=== PATIENT | female | born 1940 | race Caucasian/White ===

== ENCOUNTER → 2022-12-09 | Outpatient (CLI) | payer OTHER ==
--- NOTE | 2022-12-09 12:46 | US ---
EXAMINATION TYPE: US venous doppler duplex LE LT DATE OF EXAM: 12/09/2022 12:25 PM COMPARISON: NONE CLINICAL INDICATION: Female, 82 years old with history of M79.605 PAIN IN LEFT LEG; Left lower leg sw elling SIDE PERFORMED: Left TECHNIQUE: The lower extremity deep venous system is examined utilizing real time linear array sonog cody with graded compression, doppler sonography and color-flow sonography. VESSELS IMAGED: Common Femoral Vein Deep Femoral Vein Greater Saphenous Vein * Femoral Vein Popliteal Vein Small Saphenous Vein * Proximal Calf Veins (* superficial vessels) Left Leg: Appears negative for DVT IMPRESSION: No evidence of deep venous thrombosis.
== END | disposition home or self-care (01) ==
LOC: RADUSWWP 12:03
PROVIDERS: ATTEND Family Medicine
DX: M79.605 Pain in left leg (principal)

== ENCOUNTER → 2023-02-07 | Outpatient (CLI) | payer MEDICARE ==
[2023-02-07 16:33] LABS: African American GFR (CKD) 84 (>60 ml/min/1.73 sqM); Blood Urea Nitrogen 17 mg/dL (7-17); Non-African American GFR(CKD) 73 (>60 ml/min/1.73 sqM)
--- NOTE | 2023-02-07 21:26 | CT ---
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 CT DLP: 380.40 mGycm, Automated exposure control for dose reduction was used. CONTRAST: Performed injected with 100 mL of Isovue 370. TECHNIQUE: Axial images were obtained at 5 mm thick sections. Reconstructed images are reviewed on [employer] computer in the coronal plane. FINDINGS: Portion of the thyroid visualized is normal. No suspicious lung nodules or focal infiltrates are present. No suspicious diaphragmatic calcification or pleural calcifications identified. There is a 1.1 cm left peribronchial node. Borderline 1 cm lymph nodes in the subcarinal region. The re are additional small lymph nodes in the pretracheal and periaortic regions. The ascending aorta di ameter at the level of the main pulmonary artery is 3.3 cm. The main pulmonary artery diameter at th e bifurcation is 2.[address] sections are obtained through the upper abdomen. Abdomen is essentially unremarkable. IMPRESSION: 1. Borderline adenopathy. Follow-up exam in 6 months is recommended. 2. Typical findings of asbestosis not identified on the current exam
== END | disposition home or self-care (01) ==
LOC: RADCTMAIN 15:47
PROVIDERS: ATTEND Family Medicine
DX: R06.02 Shortness of breath (principal); Z77.090 Contact with and (suspected) exposure to asbestos
CPT/HCPCS: 82565; 84520; 71260; 36415; Q9967

== ENCOUNTER → 2023-08-10 | Outpatient (CLI) | payer MEDICARE ==
--- NOTE | 2023-08-11 09:09 | CT ---
EXAMINATION TYPE: CT chest wo con DATE OF EXAM: 08/10/2023 COMPARISON: Prior chest CT February 07, 2023 HISTORY: SOLITARY PULMONARY NODULE CT DLP: 3554.1 mGycm. Automated Exposure Control for Dose Reduction was Utilized. TECHNIQUE: CT scan of the thorax is performed without IV contrast. FINDINGS: LUNGS: Mild bilateral lower lung linear scarring and/or atelectasis. No consolidation. No greater desirae n 5 mm pulmonary nodules. No pleural effusion or pneumothorax. MEDIASTINUM: Lack of IV contrast is noted to limit evaluation for mediastinal and especially hilar ad enopathy. Stable 9 x 7 mm prevascular lymph node axial image 25. Stable 13 x 6 mm subcarinal lymph no de. No new or enlarging greater than 1 cm in short axis mediastinal adenopathy. Calcification at the level of the mitral valve. No cardiomegaly or pericardial effusion is seen. Mild to moderate calcifie d plaque of the thoracic aorta. OTHER: Cholecystectomy clips are seen. Multilevel spurring in the spine. IMPRESSION: Chronic changes without new or enlarging new or enlarging greater than 5 mm pulmonary nod ules. No suspicious thoracic adenopathy. No acute findings are evident. No significant change from pr ior CT.
== END | disposition home or self-care (01) ==
LOC: RADCTMAIN 11:29
PROVIDERS: ATTEND Family Medicine
DX: J98.4 Other disorders of lung (principal); R91.1 Solitary pulmonary nodule
CPT/HCPCS: 71250